=== PATIENT | male | born 1950 | race Caucasian/White ===

== ENCOUNTER 2019-04-19 22:59 | Observation (INO) ==
--- NOTE | 2019-04-19 23:05 | Emergency Department Note ---
Disposition Clinical Impression: Chest pain Disposition: Admitted As Inpatient Condition: Good Chest Pain HPI - General Chief Complaint: ED Chest Pain Stated Complaint: chest pain Time Seen by Provider: 04/19/19 23:03 Source: patient Vital Signs Reviewed: Yes Nursing Notes Reviewed: Yes - History of Present Illness HPI Narrative: Patient presents with chest pain is started this afternoon. He has shortness of breath radiates through to his back and he is sweaty. And he is sweaty. It has been relatively constant since it started. Onset (ago): hour(s) (several) Duration: constant Onset: during rest Pain Location: substernal Severity: moderate Quality: aching, heaviness Pain Radiation: back Improves with: nothing Worsens with: nothing Associated symptoms: Reports: diaphoresis, dyspnea - Related Data Home Medications Medication Instructions Recorded Confirmed Allopurinol [Zyloprim] 100 mg PO DAILY 12/18/16 11/09/18 Aspirin [Ecotrin] 325 mg PO DAILY 12/18/16 11/09/18 Carvedilol [Coreg] 6.25 mg PO BIDWM 12/18/16 04/20/19 Amlodipine Besylate 10 mg PO DAILY 03/27/18 11/09/18 Bumetanide 3 mg PO DAILY 03/27/18 04/20/19 Esomeprazole Magnesium [Nexium 20 mg PO DAILY 03/27/18 04/20/19 24Hr] Lactulose 30 ml PO TID 03/27/18 04/20/19 Spironolactone [Aldactone] 25 mg PO DAILY 03/27/18 04/20/19 metOLazone [Zaroxolyn] 2.5 mg PO DAILY 03/27/18 04/20/19 Insulin NPH Hum/Reg Insulin Hm 55 unit SQ DAILY 11/09/18 04/20/19 [Humulin 70/30 Kwikpen] Clopidogrel Bisulfate [Plavix] 75 mg PO DAILY 04/19/19 04/19/19 Insulin NPH/REG 70/30 (HUMAN) 45 unit SQ DAILY 04/20/19 04/20/19 [HumuLIN 70/30 VIAL] Allergies Allergy/AdvReac Type Severity Reaction Status Date / Time levofloxacin [From Levaquin] AdvReac Cramping Verified 11/14/17 13:51 of the Muscles All systems ED: reviewed and negative except as stated. Review of Systems: As Per HPI Constitutional: Denies: fever, chills, weakness, weight change Eyes: Reports: as per HPI ENT ED: Denies: ear pain, throat pain, dental pain, hearing loss, epistaxis, congestion, dysphagia Cardiovascular: Reports: as per HPI, chest pain Respiratory: Denies: cough, dyspnea, wheezes, hemoptysis, stridor Gastrointestinal: Denies: abdominal pain, nausea, vomiting, diarrhea, constipation, hematemesis, melena, hematochezia Genitourinary: Denies: urgency, dysuria, frequency, hematuria Musculoskeletal: Denies: back pain, neck pain, arthralgia, myalgia Integumentary: Denies: rash, abrasion, lesions Neurological: Denies: headache, weakness, numbness, paresthesias, confusion, abnormal gait, vertigo Psychiatric: Denies: anxiety, depression, suicidal thoughts, homicidal thoughts, auditory hallucinations, visual hallucinations Endocrine: Denies: fatigue Hematological/Lymphatic: Denies: easy bleeding, easy bruising Allergic/Immunologic: Denies: facial swelling, urticaria Chest Pain PMH - Past Medical History Medical history: Reports: diabetes, hyperlipidemia Surgical history: Reports: angioplasty/stent, cholecystectomy, pacemaker/AICD, other Psychiatric history: Reports: no psych history - Social History Smoking Status: Former smoker Alcohol use: Reports: none Drug use: Reports: none Physical Exam - General Limitations: no limitations General appearance: alert, in no apparent distress - Head Head exam: atraumatic, normocephalic, normal inspection - Eye Eye exam: Present: normal appearance, PERRL, EOMI - ENT ENT exam: normal exam, normal oropharynx, mucous membranes moist - Neck Neck exam: Present: normal inspection, full ROM, trachea midline - Chest Chest inspection: Present: normal inspection, symmetric chest wall rise - Respiratory Respiratory exam: Present: normal lung sounds bilaterally - Cardiovascular Cardiovascular exam: Present: regular rate, normal rhythm, normal heart sounds - Abdominal Exam Abdominal exam: Present: soft, Non-Tender. Absent: tenderness, distention, guarding, rebound, rigidity - Extremities Exam Extremities exam: Present: normal inspection, full ROM. Absent: tenderness, pedal edema - Back Exam Back exam: Present: normal inspection, full ROM. Absent: tenderness - Neurological Exam Neurological exam: Present: alert, oriented X3 - Psychiatric Psychiatric exam: Present: normal affect, normal mood - Skin Skin exam: Present: warm, dry, intact, normal color Course Vital Signs Temperature 97.9 F 04/19/19 23:00 Pulse Rate 68 04/19/19 23:00 Respiratory Rate 18 04/19/19 23:00 Blood Pressure 122/70 04/19/19 23:00 O2 Sat by Pulse Oximetry 99 04/19/19 23:00 Temperature 98.1 F 04/20/19 03:42 Pulse Rate 75 04/20/19 03:42 Respiratory Rate 18 04/20/19 03:42 Blood Pressure 144/70 04/20/19 03:42 O2 Sat by Pulse Oximetry 99 04/20/19 03:42 Oxygen Delivery Oxygen Delivery Room Air Chest Pain - MDM Narrative Medical decision making narrative: I reviewed the patient's medication list - Lab Data Lab results reviewed: Yes I reviewed the patient's lab results. Result diagrams: 04/19/19 23:10 04/19/19 23:10 Lab Results 04/19/19 04/19/19 04/19/19 Range/Units 23:10 23:10 23:10 WBC 2.1 L (4.3-11.1) K/mcL RBC 3.76 L (4.19-5.50) M/mcL Hgb 11.6 L (12.9-16.9) g/dL Hct 32.5 L (37.5-50.1) % MCV 86.4 (83.0-100.0) fL MCH 30.9 (28.0-33.3) pg MCHC 35.7 H (31.6-35.5) g/dL RDW 13.9 (11.5-14.5) % Plt Count 69 L (140-400) K/mcL MPV 11.5 (9.4-12.4) fL Immature Gran % 0.0 (0-4) % Seg Neutrophils % 60.4 % Lymphocytes % 21.0 % Monocytes % 12.2 % Eosinophils % 5.4 % Basophils % 1.0 % Neutrophils # 1.3 L (1.6-8.9) K/mcL Lymphocytes # 0.4 L (0.6-4.6) K/mcL Monocytes # 0.3 (0.0-1.3) K/mcL Eosinophils # 0.1 (0.0-0.6) K/mcL Basophils # 0.0 (0.0-0.2) K/mcL Sodium 132 L (136-145) mEq/L Potassium 4.1 (3.5-5.1) mEq/L Chloride 100 (98-107) mEq/L Carbon Dioxide 23 (23-29) mEq/L BUN 34 H (8-23) mg/dL Creatinine 2.26 H (0.70-1.30) mg/dL Est GFR ( Amer) 35 L (> 60) Est GFR (Non-Af Amer) 29 L (> 60) BUN/Creatinine Ratio 15 (6-26) Glucose 373 H (70-105) mg/dL Calculated Osmolality 297 (280-300) Calcium 8.8 (8.6-10.3) mg/dL Total Bilirubin 1.1 H (0.3-1.0) mg/dL AST 39 (13-39) Units/L ALT 29 (7-52) Units/L Alkaline Phosphatase 122 H (34-104) Units/L Troponin I < 0.03 (< 0.04) ng/mL B-Natriuretic Peptide 780 H (Less than 100) pg/mL Serum Total Protein 6.5 (6.4-8.9) g/dL Albumin 3.9 (3.5-5.7) g/dL Globulin 2.6 (2.4-3.5) g/dL Albumin/Globulin Ratio 1.5 (1.1-2.2) 04/20/19 Range/Units 02:14 WBC (4.3-11.1) K/mcL RBC (4.19-5.50) M/mcL Hgb (12.9-16.9) g/dL Hct (37.5-50.1) % MCV (83.0-100.0) fL MCH (28.0-33.3) pg MCHC (31.6-35.5) g/dL RDW (11.5-14.5) % Plt Count (140-400) K/mcL MPV (9.4-12.4) fL Immature Gran % (0-4) % Seg Neutrophils % % Lymphocytes % % Monocytes % % Eosinophils % % Basophils % % Neutrophils # (1.6-8.9) K/mcL Lymphocytes # (0.6-4.6) K/mcL Monocytes # (0.0-1.3) K/mcL Eosinophils # (0.0-0.6) K/mcL Basophils # (0.0-0.2) K/mcL Sodium (136-145) mEq/L Potassium (3.5-5.1) mEq/L Chloride (98-107) mEq/L Carbon Dioxide (23-29) mEq/L BUN (8-23) mg/dL Creatinine (0.70-1.30) mg/dL Est GFR ( Amer) (> 60) Est GFR (Non-Af Amer) (> 60) BUN/Creatinine Ratio (6-26) Glucose (70-105) mg/dL Calculated Osmolality (280-300) Calcium (8.6-10.3) mg/dL Total Bilirubin (0.3-1.0) mg/dL AST (13-39) Units/L ALT (7-52) Units/L Alkaline Phosphatase (34-104) Units/L Troponin I < 0.03 (< 0.04) ng/mL B-Natriuretic Peptide (Less than 100) pg/mL Serum Total Protein (6.4-8.9) g/dL Albumin (3.5-5.7) g/dL Globulin (2.4-3.5) g/dL Albumin/Globulin Ratio (1.1-2.2) - Radiology Data Radiology results reviewed: Yes I reviewed the patient's radiology results. - EKG Data EKG attestation: Yes I reviewed and interpreted this EKG. EKG results narrative: EKG shows a paced rhythm with a rate of 74 bpm. Intervals 440 ms [place] 102 ms QT intervals 422 QTC 496 ms. R axis of 52 degrees
[2019-04-19] MEDS ORDERED: Aspirin 81 MG TAB.CHEW PO STA (23:06)
[2019-04-19] MEDS ORDERED: Nitroglycerin 0.4 MG TAB.SUBL SL PRN (23:06)
[2019-04-19 23:17] LABS: Eosinophils # 0.1 K/mcL (0.0-0.6); Eosinophils % 5.4 %; Hematocrit 32.5 % (37.5-50.1); Hemoglobin 11.6 g/dL (12.9-16.9); Lymphocytes # 0.4 K/mcL (0.6-4.6); Mean Corpuscular HGB Conc 35.7 g/dL (31.6-35.5); Mean Corpuscular Hemoglobin 30.9 pg (28.0-33.3); Mean Corpuscular Volume 86.4 fL (83.0-100.0); Mean Platelet Volume 11.5 fL (9.4-12.4); Monocytes # 0.3 K/mcL (0.0-1.3); Monocytes % 12.2 %; Red Blood Count 3.76 M/mcL (4.19-5.50); Red Cell Distribution Width 13.9 % (11.5-14.5); Segmented Neutrophils % 60.4 %
[2019-04-19 23:21] LABS: Neutrophils # 1.3 K/mcL (1.6-8.9); Platelet Count 69 K/mcL (140-400)
[2019-04-19 23:36] LABS: Alanine Aminotransferase 29 Units/L (7-52); Albumin 3.9 g/dL (3.5-5.7); Albumin/Globulin Ratio 1.5 (1.1-2.2); Alkaline Phosphatase 122 Units/L (34-104); Aspartate Amino Transferase 39 Units/L (13-39); BUN/Creatinine Ratio 15 (6-26); Bilirubin,Total 1.1 mg/dL (0.3-1.0); Blood Urea Nitrogen 34 mg/dL (8-23); Calcium 8.8 mg/dL (8.6-10.3); Carbon Dioxide 23 mEq/L (23-29); Chloride 100 mEq/L (98-107); Globulin 2.6 g/dL (2.4-3.5); Glucose 373 mg/dL (70-105); Osmolality,Calculated 297 (280-300); Potassium 4.1 mEq/L (3.5-5.1); Sodium 132 mEq/L (136-145); Total Protein 6.5 g/dL (6.4-8.9); Troponin I < 0.03 ng/mL (< 0.04); eGFR For Non-African Americans 29 (> 60)
[2019-04-19] MEDS ORDERED: 0.9 % Sodium Chloride 1,000 ML IVC SCH (23:45)
[2019-04-19] MEDS: 0.9 % Sodium Chloride 1,000 ML IVC SCH ×2 (23:47→23:51)
[2019-04-20] MEDS ORDERED: Nitroglycerin 0.4 MG TAB.SUBL SL PRN (03:33)
[2019-04-20] MEDS ORDERED: Naloxone 0.4 MG/ML INJ IVP PRN (03:33)
[2019-04-20] MEDS ORDERED: 0.9 % Sodium Chloride 1,000 ML IVC SCH (03:33)
[2019-04-20] MEDS ORDERED: Insulin NPH/REG 70/30 100 UNIT/ML (x5UNIT) SQ SCH (08:00)
[2019-04-20] MEDS ORDERED: Spironolactone 25 MG TABLET PO SCH (09:00)
[2019-04-20] MEDS ORDERED: Bumetanide 1 MG TABLET PO SCH (09:00)
[2019-04-20] MEDS ORDERED: metOLazone 5 MG TABLET PO SCH (09:00)
[2019-04-20] MEDS ORDERED: NON-FORMULARY MEDICATION 1 EACH EACH (Insulin Nph Hum/Reg Insulin Hm [Humulin 70/30 Kwikpe SQ SCH (09:00)
[2019-04-20] MEDS ORDERED: amLODIPine 5 MG TABLET PO SCH (09:00)
[2019-04-20] MEDS ORDERED: Aspirin Enteric Coated 325 MG Tablet PO SCH (09:00)
[2019-04-20 11:26] VITALS: BP 104/62
--- NOTE | 2019-04-20 12:28 | Internal Med History&Physical ---
Date of Encounter: 04/20/19 Time of Encounter: 11:45 Assessment and Plan (1) Chest pain Current visit: Yes Status: Acute Doubt myocardial ischemia from history and physical. Repeat cardiac enzymes were ordered through emergency room. Qualifiers: Chest pain type: unspecified Qualified Code(s): R07.9 - Chest pain, unspecified (2) CAD (coronary artery disease) Current visit: Yes Status: Acute Continue aspirin and Plavix following recent stents placement. Qualifiers: Coronary Disease-Associated Artery/Lesion type: [place] artery [place] vs. transplanted heart: [place] heart Associated angina: angina presence unspecified Qualified Code(s): I25.10 - Atherosclerotic heart disease of [place] coronary artery without angina pectoris (3) Cirrhosis Current visit: No Status: Chronic As per glass laminating operator Qualifiers: Hepatic cirrhosis type: other cirrhosis Qualified Code(s): K74.69 - Other cirrhosis of liver (4) A-fib Current visit: No Status: Chronic Status post ablation. Continue Coreg, aspirin, and Plavix. He will follow up with solar energy technician later this week. Qualifiers: Atrial fibrillation type: chronic Qualified Code(s): I48.2 - Chronic atrial fibrillation Internal Medicine - H&P: HPI Chief complaint: Chest discomfort, dyspnea Admitted From: Emergency Dept Plans for Post Hospital Care: Home History of present illness: Mr. Vasquez is a 68 year old male who came to emergency room stating he had gradual onset of mid chest heaviness approximately 1400 while doing leisure activity. It lasted approximately 2 hours then seemed to decrease but worsened again approximately 1930 while at leisure. When it did not resolve he came to emergency room. He was evaluated and admitted to [facility] floor for ongoing care needs. He states the discomfort has significantly lessened but not completely resolved at present time. He denies cough. Cardiac history is significant for hypertension and HFpEF. Echocardiogram 03/28/2018 showed LVEF of 60-65%. The E/A ratio was 0.7. No significant valvular dysfunction was seen. The interventricular septum and posterior wall thickness measurements were 1.46 and 1.27 cm respectively. He has known ASHD with stent placed approximately 2005 and 2 additional stents placed 1 month ago at [facility]. He is on DAPT. He had atrial fibrillation with ablation procedure several years ago with pacemaker placement. The pacer site became seeded with bacteria and after several courses of recurrent bacteremia the pacer was removed from left upper chest and a new device was placed in the right upper chest. He reports antibiotics given for bacteremia treatment cause acute kidney failure without recovery. He denies DVT or pulmonary embolus. He reports history of portal vein thrombosis and esophageal varices. Past Med Surg Social Fam HX - Past Medical History Medical history: diabetes, hyperlipidemia, other Psychiatric history: no psych history - Past Surgical History Surgical History: angioplasty/stent, cholecystectomy, pacemaker/AICD, other Additional surgical history: Cardiac stent - Social History Smoking Status: Former smoker Smokeless Tobacco Status: No Alcohol use: none Drug use: none - Family History Mother Living Status: Hx Family Cardiac Disorders: Yes ([place]) Father Living Status: Hx Family Respiratory Disorders: Yes (COPD) Internal Medicine - H&P: Meds Allopurinol [Zyloprim] 100 mg PO DAILY 12/18/16 [History] Aspirin [Ecotrin] 325 mg PO DAILY 12/18/16 [History] Carvedilol [Coreg] 6.25 mg PO BIDWM 12/18/16 [History] Amlodipine Besylate 10 mg PO DAILY 03/27/18 [History] Bumetanide 3 mg PO DAILY 03/27/18 [History] Esomeprazole Magnesium [Nexium 24Hr] 20 mg PO DAILY 03/27/18 [History] Lactulose 30 ml PO TID 03/27/18 [History] Spironolactone [Aldactone] 25 mg PO DAILY 03/27/18 [History] metOLazone [Zaroxolyn] 2.5 mg PO DAILY 03/27/18 [History] Insulin NPH Hum/Reg Insulin Hm [Humulin 70/30 Kwikpen] 55 unit SQ DAILY 11/09/18 [History] Clopidogrel Bisulfate [Plavix] 75 mg PO DAILY 04/19/19 [History] Insulin NPH/REG 70/30 (HUMAN) [HumuLIN 70/30 VIAL] 45 unit SQ DAILY 04/20/19 [History] Allergy/AdvReac Type Severity Reaction Status Date / Time levofloxacin [From Levaquin] AdvReac Cramping Verified 11/14/17 13:51 of the Muscles All Systems PM: A 10-system review of systems was performed and is negative for pertinent findings except as documented above in the HPI. Review of systems: Gen.: His weight has increased from 100.1 kg 03/29/2018 to present weight of 114.39 kg. Cardiovascular: As per history of present illness Respiratory: He smoked from age [age] up to one half pack per day. He denies chronic lung disease and does not use home oxygen GI: He has had cholecystectomy. He has been diagnosed with cirrhosis felt secondary to NAFLD. He has had esophageal varices treatment. He has history of portal vein thrombosis. He denies other disorders of his liver or exocrine pancreas. : He has chronic kidney disease from antibiotic use as per history of present illness. He denies other kidney bladder prostate disorders. Neurologic: He denies large distribution strokes or seizures. Endocrine: He was diagnosed with DM 2 approximately 2008. He denies known thyroid disease or hyperlipidemia Hematology/oncology: He was unaware he had anemia on labs in ER. He denies internal malignancies or other blood disorders Psychiatric: He denies anxiety depression or other mental health issues [place] skeletal: He has hyperuricemia and is on allopurinol. He had biceps tendon repair in the past. He denies gout or other bone joint or muscle disorders. - Constitutional Vitals: Temp Pulse Resp BP Pulse Ox 97.8 F 63 18 104/62 98 04/20/19 11:25 04/20/19 11:25 04/20/19 11:25 04/20/19 11:25 04/20/19 11:25 Exam: Gen.: He is a well-developed well-nourished male resting comfortably in bed who appears in no acute distress HEENT: Head is atraumatic and normal cephalic. Eyes: EOMI. There is no scleral icterus. Mouth: Mucosa is moist. Neck: Supple and nontender. There is no thyromegaly or adenopathy noted. Heart: Regular without murmurs gallops or ectopics Lungs: No wheezes or crackles are heard. Chest: He has no tenderness is costosternal joints to light compression. Abdomen: Soft and nontender. No masses or guarding are noted. Extremities: He has 1+ edema of the lower anterior shins and sonny-malleolar areas bilaterally. Dorsalis pedis and posttibial pulses are trace palpable. His feet are warm to touch. Neurologic: Mental status: He is talkative and a good historian. Cranial nerves: Smile is symmetric. Forehead wrinkles bilaterally. Tongue protrudes midline. EOMI. Motor: There is no pronator drift. Cerebellar: Finger to nose is intact bilaterally. Skin: Warm and dry Internal Med - H&P Results - Labs CBC & Chem 7: 04/19/19 23:10 04/19/19 23:10 Labs: Short CBC 04/19/19 Range/Units 23:10 WBC 2.1 L (4.3-11.1) K/mcL Hgb 11.6 L (12.9-16.9) g/dL Hct 32.5 L (37.5-50.1) % Plt Count 69 L (140-400) K/mcL Neutrophils # 1.3 L (1.6-8.9) K/mcL BMP 04/19/19 23:10 Sodium 132 L Potassium 4.1 Chloride 100 Carbon Dioxide 23 BUN 34 H Creatinine 2.26 H Glucose 373 H Calcium 8.8 Cardiac Enzymes 04/19/19 04/20/19 04/20/19 Range/Units 23:10 02:14 08:20 Troponin I < 0.03 < 0.03 < 0.03 (< 0.04) ng/mL Liver Function 04/19/19 Range/Units 23:10 Total Bilirubin 1.1 H (0.3-1.0) mg/dL AST 39 (13-39) Units/L ALT 29 (7-52) Units/L Alkaline Phosphatase 122 H (34-104) Units/L Albumin 3.9 (3.5-5.7) g/dL - Impressions ITS Impressions Chest X-Ray 04/19/19 23:06 IMPRESSION: No acute disease. D/ / Dylan Cates MD / Dylan Cates MD Interpreting Provider: Dylan Cates MD
--- NOTE | 2019-04-20 12:44 | Discharge Summary ---
Orders not resulted at time of discharge: Pending orders 04/19/19 23:06 ECG 12 lead ECG [ECG] Stat 04/20/19 13:00 Troponin I Q6H Date of Encounter: 04/20/19 Time of Encounter: 11:45 - Discharge Diagnosis (1) Chest pain Priority: Primary Status: Acute Qualifiers: Chest pain type: unspecified Qualified Code(s): R07.9 - Chest pain, unspecified (2) CAD (coronary artery disease) Priority: Secondary Status: Acute Qualifiers: Coronary Disease-Associated Artery/Lesion type: [place] artery [place] vs. transplanted heart: [place] heart Associated angina: angina presence unspecified Qualified Code(s): I25.10 - Atherosclerotic heart disease of [place] coronary artery without angina pectoris (3) Cirrhosis Priority: Secondary Status: Chronic Qualifiers: Hepatic cirrhosis type: other cirrhosis Qualified Code(s): K74.69 - Other cirrhosis of liver (4) A-fib Priority: Secondary Status: Chronic Qualifiers: Atrial fibrillation type: chronic Qualified Code(s): I48.2 - Chronic atrial fibrillation Hospital course: Mr. Vasquez is a 68 year old male who came to emergency room stating he had gradual onset of mid chest heaviness approximately 1400 while doing leisure activity. It lasted approximately 2 hours then seemed to decrease but worsened again approximately 1930 while at leisure. When it did not resolve he came to emergency room. He was evaluated and admitted to [facility] for ongoing care needs. Initial orders were written by the emergency room physician. I saw him on April 20 and performed a history physical and discharge. His regular home medications were continued. Repeat cardiac enzymes showed no evidence of myocardial damage. When I saw him I did not think the chest discomfort was likely to be of myocardial ischemic origin. The etiology of the discomfort was not determined with certainty. When I saw him he stated the discomfort had lessened and he felt improved enough to be discharged home. I told him he could talk with his PCP and/or mental health social worker about a trial of Imdur for heart failure and chest discomfort. He will follow with political worker office tomorrow, mental health social worker office on April 24, and with his PCP Dr. Armijo within 1 week. - Time Spent with Patient Total time spent providing and/or coordinating discharge services: - Discharge Medications Prescriptions: Continued Esomeprazole Magnesium [Nexium 24Hr] 20 mg PO DAILY Bumetanide 3 mg PO DAILY Amlodipine Besylate 10 mg PO DAILY Spironolactone [Aldactone] 25 mg PO DAILY metOLazone [Zaroxolyn] 2.5 mg PO DAILY Lactulose 30 ml PO TID Allopurinol [Zyloprim] 100 mg PO DAILY Carvedilol [Coreg] 6.25 mg PO BIDWM Aspirin [Ecotrin] 325 mg PO DAILY Insulin NPH Hum/Reg Insulin Hm [Humulin 70/30 Kwikpen] 55 unit SQ DAILY Clopidogrel Bisulfate [Plavix] 75 mg PO DAILY Insulin NPH/REG 70/30 (HUMAN) [Humulin 70/30 Vial] 45 unit SQ DAILY Home Medications: Allopurinol [Zyloprim] 100 mg PO DAILY 12/18/16 [History] Aspirin [Ecotrin] 325 mg PO DAILY 12/18/16 [History] Carvedilol [Coreg] 6.25 mg PO BIDWM 12/18/16 [History] Amlodipine Besylate 10 mg PO DAILY 03/27/18 [History] Bumetanide 3 mg PO DAILY 03/27/18 [History] Esomeprazole Magnesium [Nexium 24Hr] 20 mg PO DAILY 03/27/18 [History] Lactulose 30 ml PO TID 03/27/18 [History] Spironolactone [Aldactone] 25 mg PO DAILY 03/27/18 [History] metOLazone [Zaroxolyn] 2.5 mg PO DAILY 03/27/18 [History] Insulin NPH Hum/Reg Insulin Hm [Humulin 70/30 Kwikpen] 55 unit SQ DAILY 11/09/18 [History] Clopidogrel Bisulfate [Plavix] 75 mg PO DAILY 04/19/19 [History] Insulin NPH/REG 70/30 (HUMAN) [Humulin 70/30 Vial] 45 unit SQ DAILY 04/20/19 [ History] Allergies/Adverse Reactions: Allergy/AdvReac Type Severity Reaction Status Date / Time levofloxacin [From Levaquin] AdvReac Cramping Verified 11/14/17 13:51 of the Muscles Date of admission: 04/20/19 03:07 Primary care physician: César Armijo, DO - Constitutional Vitals: Temp Pulse Resp BP Pulse Ox 97.8 F 63 18 104/62 98 04/20/19 11:25 04/20/19 11:25 04/20/19 11:25 04/20/19 11:25 04/20/19 11:25 - Patient Status Disposition: Home, Self-Care Condition: Good - Discharge Instructions Follow Up With: César Armijo DO [Primary Care Provider] - 1 week - Diet and Activity Activity: resume usual activities as tolerated Diet: diabetic diet
--- NOTE | 2019-04-20 14:43 | Electrocardiograph Report ---
[place] [id number] Test Date: 2019-04-19 Pat Name: Isaias Vasquez Department: EDP-16 Room: [facility] Gender: M Lime Supervisor: : [id number] Requested By: Zeferino Call Order Number: [id number] Reading MD: Loyd Cabrera Measurements Intervals [place] Rate: 74 P: -11 [place]: 448 QRS: 52 QRSD: 102 T: -29 QT: 422 QTc: 496 Interpretive Statements Atrial fibrillation with demand ventricular pacing Nonspecific T abnormalities, diffuse leads Electronically Signed On 04-20-2019 14:41:34 EDT by Loyd Cabrera
== END 2019-04-20 13:30 | disposition home or self-care (01) ==
LOC: EMEROOPIK 22:59 → INPPIK 22:59
PROVIDERS: ADMIT Internal Medicine; ATTEND Internal Medicine